=== PATIENT | male | born 1960 | race Caucasian/White ===

== ENCOUNTER 2025-03-20 14:34 | Inpatient (IN) | payer BC, MEDICAID ==
[~2025-03-20] VITALS: Ht 172.7 cm; Wt 68.0 kg
[2025-03-20 16:10] LABS: BASOPHILS % 1.0 % (0.0-2.0); EOSINOPHILS % 0.6 % (0.0-5.0); HEMATOCRIT. 42.5 % (42.0-52.0); HEMOGLOBIN. 14.9 g/dL (14.0-18.0); LYMPHOCYTES % 13.6 % (20.0-50.0); MEAN PLATELET VOLUME 9.5 fl (7.4-10.4); MONOCYTES % 6.4 % (2.0-8.0); NEUTROPHILS % 78.4 % (40.0-76.0); PLATELET 178 x1000/uL (130-400); RED BLOOD CELL COUNT 5.10 mill/uL (4.7-6.1); RED CELL DISTRIBUTION WIDTH 13.4 % (11.6-14.6)
[2025-03-20] MEDS: SODIUM CHLORIDE 0.9% 1,000 ML IV ONE (16:16)
[2025-03-20] MEDS: PANTOPRAZOLE SODIUM 40 MG/VIAL IV STA (16:16)
[2025-03-20] MEDS: MORPHINE SULFATE 4 MG/ML INJ (FOR IV/IM USE) IV STA (16:16)
[2025-03-20] MEDS: ONDANSETRON HCL 4MG/2ML INJ IV ONE (16:17)
[2025-03-20 16:24] LABS: CREATININE 1.0 mg/dL (0.6-1.3); UREA NITROGEN BLOOD 16 mg/dL (9-23)
[2025-03-20 16:25] LABS: TROPONIN I HIGH SENSITIVITY 22 ng/L (3.0-53)
[2025-03-20 16:31] LABS: LACTIC ACID 4.9 mmol/L (0.4-2.0)
[2025-03-20 16:38] LABS: INR 1.0
[2025-03-20] MEDS ORDERED: DIATR MEGLU/DIATRIZOATE SOLN 30ML ONE (16:45)
[2025-03-20] MEDS: PREDNISOLONE 15MG/5ML ORAL SYR PO ONE (16:48)
[2025-03-20] MEDS: PREDNISOLONE 15MG/5ML ORAL SYR PO SCH (17:00)
[2025-03-20] MEDS ORDERED: ACETAMINOPHEN 325MG TABLET PO PRN ×2 (19:45)
[2025-03-20] MEDS ORDERED: GUAIFENESIN 200MG/10ML SUGAR FREE UDC PO PRN (19:45)
[2025-03-20] MEDS ORDERED: IPRATROPIUM/ALBUTEROL 0.5-3(2.5)MG/3ML NEB HHN PRN (19:45)
[2025-03-20] MEDS ORDERED: ONDANSETRON HCL 4MG/2ML INJ IV PRN (19:45)
[2025-03-20] MEDS ORDERED: DIPHENHYDRAMINE 50MG/ML VIAL IV PRN (19:45)
[2025-03-20] MEDS ORDERED: MAGNESIUM/ALUMINUM HYDROXIDE/SIMETHICONE 30ML UDC PO PRN (19:45)
[2025-03-20] MEDS ORDERED: DOCUSATE SODIUM 100MG CAPSULE PO PRN (19:45)
[2025-03-20] MEDS ORDERED: HYDRALAZINE 20MG/ML VIAL IV PRN (21:00)
[2025-03-20] MEDS ORDERED: HYDRALAZINE 10 MG in SODIUM CHLORIDE 0.9% 49.5 ML IV PRN (21:00)
[2025-03-20 21:10] LABS: PHOSPHORUS 2.5 mg/dL (2.5-4.9)
[2025-03-20 22:00] VITALS: BP 123/75; PULSE 78; RESP 18; TEMP 36.7
[2025-03-20] MEDS: SUCRALFATE 1G TABLET PO SCH (22:40)
[2025-03-20] MEDS: LOSARTAN 50 MG TABLET PO SCH (22:41)
[2025-03-20] MEDS: PANTOPRAZOLE SODIUM 40 MG/VIAL IV SCH (22:42)
[2025-03-20] MEDS ORDERED: IOHEXOL-300 100 ML BOTTLE ONE (23:39)
[2025-03-21] MEDS: DEXT 5%/0.9% NACL 1,000 ML IV SCH (01:12)
[2025-03-21 08:00] VITALS: BP 107/72; PULSE 60; RESP 18; TEMP 36.7; O2SAT 100
[2025-03-21 09:27] LABS: HEMATOCRIT. 43.2 % (42.0-52.0); HEMOGLOBIN. 14.0 g/dL (14.0-18.0); MEAN PLATELET VOLUME 9.5 fl (7.4-10.4); PLATELET 190 x1000/uL (130-400); RED BLOOD CELL COUNT 5.17 mill/uL (4.7-6.1); RED CELL DISTRIBUTION WIDTH 13.8 % (11.6-14.6)
[2025-03-21 09:47] LABS: CREATININE 0.8 mg/dL (0.6-1.3); UREA NITROGEN BLOOD 12 mg/dL (9-23)
[2025-03-21 09:49] LABS: ASPARTATE AMINOTRANSFERASE 17 IU/L (<34); BILIRUBIN DIRECT 0.3 mg/dL (<=3.0); BILIRUBIN TOTAL 1.0 mg/dL (0.1-1.0); PROTEIN TOTAL 7.4 g/dL (6.0-8.3)
[2025-03-21 12:00] VITALS: BP 112/73; PULSE 61; RESP 18; TEMP 36.7; O2SAT 99
[2025-03-21 13:28] LABS: BAND% 1.0 % (1.0-6.0); LYMPHOCYTES % MANUAL 9.0 % (20.0-50.0); MONOCYTES % MANUAL 1.0 % (2.0-8.0); NEUTROPHILS % MANUAL 89.0 % (45.0-75.0); PLATELET ESTIMATE NORMAL
[2025-03-21 14:57] VITALS: BP 112/73; PULSE 61; TEMP 98.1; O2SAT 100
[2025-03-21 16:00] VITALS: BP 145/88; PULSE 62; RESP 18; TEMP 36.4; O2SAT 98
== END 2025-03-21 13:55 | disposition home or self-care (01) | DRG 392 ==
LOC: ER 14:34 → 7EST 18:31 → EDBEDREQ 18:34 → EDBEDREQTM 18:34 → ENRESERV 18:59 → EDBEDREQSVC 19:36
PROVIDERS: ADMIT Hospitalist; ATTEND Hospitalist
DX: K21.00 Gastro-esophageal reflux disease with esophagitis, without bleeding (principal); E87.20 Acidosis, unspecified; E11.9 Type 2 diabetes mellitus without complications; E78.5 Hyperlipidemia, unspecified; I10 Essential (primary) hypertension; R00.1 Bradycardia, unspecified; K30 Functional dyspepsia; K59.00 Constipation, unspecified; Z95.0 Presence of cardiac pacemaker; Z80.0 Family history of malignant neoplasm of digestive organs; Z79.899 Other long term (current) drug therapy
CPT/HCPCS: 36415; 71260; 74177; 80048; 80076; 83036; 83605; 83735; 84100; 84443; 84484; 85025; 99285; A4606; J2270; J2405; J2470; J7030; J7510; Q9963; Q9967